=== PATIENT | female | born 1945 | race Caucasian/White ===

== ENCOUNTER → 2016-08-13 | Emergency (ER) | payer OTHER ==
[~2016-08-13] VITALS: Ht 162.6 cm; Wt 82.5 kg
[~2016-08-13] MED LIST: ACET500C5 PO; AZIT250T4 PO; BACTDS PO; BENZ100C70 PO; CEPH-443 PO; GUAI473L22 PO
[2016-08-13 13:38] VITALS: Ht 162.6 cm; Wt 82.5 kg
[2016-08-13 14:04] VITALS: BP 164/74; PULSE 60; RESP 20
== END | disposition left against medical advice (07) ==
LOC: E/R 13:34
DX: Z53.21 Procedure and treatment not carried out due to patient leaving prior to being seen by health care provider (principal)

== ENCOUNTER 2018-06-01 18:19 | Inpatient (IN) | END 2018-06-04 21:09 | DRG 872 ==

== ENCOUNTER 2019-01-10 12:05 | Observation (INO) | payer OTHER ==
[~2019-01-10] VITALS: Ht 157.5 cm; Wt 82.5 kg
[~2019-01-10 12:05] MED LIST changes: -ACET500C5 PO; +AMLO-147 PO; +ATEN50TA PO; -AZIT250T4 PO; -BACTDS PO; -BENZ100C70 PO; -CEPH-443 PO; +GABA300C16 PO; -GUAI473L22 PO; +LOSA100T3 PO; +METF-849 PO; +SITA50TA2 PO
[2019-01-10] MEDS ORDERED: morphine 4 MG/ML VIAL IV STA (12:34)
[2019-01-10] MEDS ORDERED: ONDANSETRON 4 MG INJ IV STA (12:34)
[2019-01-10] MEDS ORDERED: LABETALOL HCL 20MG INJ IV ONE (13:00)
--- NOTE | 2019-01-10 13:25 | ERD ---
ER Documentation Chief Complaint Chief Complaint headache with lt facial numbness x 4 days , rt foot pain since last night HPI This is a 73-year-old female with a past medical history of aqg-afwnwal-omyrmegfx diabetes mellitus hyperlipidemia and hypertension. The patient presented to the emergency department complaining with a mild bandlike headache for the past 4 days. She indicates that she is also been experiencing and numbness and tingling on the left side of her face. She indicates the numbness and tingling on the left side of her face has been intermittent for over 4 days. She denies any weakness of her upper or lower extremities. The patient is also complaining of right foot pain. She denies any trauma to the right foot. She states the pain is a pins and needlelike sensation and is most prominent over the right third fourth and fifth toe. She had no fevers or shaking no chills. She denies any frequency urgency or dysuria. She lives with her son who helps her to attend her activities of daily living. Her son indicates that he is concerned that the patient could have taken too much of her medications. He indicates that the pills look like and given that his mother cannot read or write he believes she might have taken too much of her swid-akl-vcwwcsi analgesic medication and forgot to take her antihypertensive medications. She denies any changes in vision. She states this is not the worst headache of her life and the patient's main concern is her right foot pain. The patient had been seen and evaluated at [facility] admitted for possible CVA in May 2018 where she also had been complaining of the same right foot pain. She denies any calf tenderness. No shortness of breath at rest or exertion. ROS All systems reviewed and are negative except as per history of present illness. Medications Home Meds Reported Medications Amlodipine Besylate* (Amlodipine Besylate*) 10 Mg Tablet, 10 MG PO DAILY, #30 TAB 06/02/18 Sitagliptin* (Januvia*) 50 Mg Tablet, 50 MG PO DAILY, #30 TAB 06/02/18 Metformin* (Glucophage*) 500 Mg Tab, 500 MG PO WITH LUNCH DINNER, #60 TAB 06/02/18 Losartan Potassium* (Cozaar*) 100 Mg Tablet, 100 MG PO DAILY, #30 TAB 06/02/18 Atenolol* (Atenolol*) 50 Mg Tablet, 50 MG PO DAILY, #30 TAB 06/02/18 Gabapentin* (Gabapentin*) 300 Mg Capsule, 300 MG PO BID, #60 CAP 06/02/18 Allergies Allergies: Coded Allergies: No Known Drug Allergy (Verified Allergy, Mild, 01/10/19) PMhx/Soc History of Surgery: No Anesthesia Reaction: No Hx Neurological Disorder: Yes (stroke 3 months ago ) Hx Respiratory Disorders: Yes (Bronchitis, Asthma ) Hx Cardiac Disorders: Yes (HTN) Hx Psychiatric Problems: Yes (Dementia) Hx Miscellaneous Medical Probl: Yes (HTN , RT FOOT PAIN LT FLANK PAIN , H.OF CVA , DM , HTN.) Hx Alcohol Use: No Hx Substance Use: No Hx Tobacco Use: No Smoking Status: Never smoker Physical Exam Vitals Vital Signs Date Temp Pulse Resp B/P (MAP) Pulse Ox O2 O2 Flow FiO2 Time Delivery Rate 01/10/19 76 18 155/77 100 Room Air 14:09 (103) 01/10/19 Nasal 2 12:50 Cannula 01/10/19 99.0 61 18 237/97 98 12:09 (143) Physical Exam Constitutional:Well-developed. Well-nourished. HEENT:Normocephalic. Atraumatic.Pupils were equal round reactive to light. Moist mucous membranes.No tonsillar exudates. Neck: No nuchal rigidity. No lymphadenopathy. No posterior cervical spine tenderness or step-offs. Respiratory: Not using accessory muscles of respiration.Lungs were clear to auscultation bilaterally. No rhonchi. No rales. No wheezing. Cardiovascular: Regular rate regular rhythm.No murmurs. No rubs were appreciated .S1, S2 normal. Distal pulses are palpable 2+ bilaterally. GI: Abdomen was soft. Nontender. Non Distended. No pulsatile abdominal masses or bruits. No rebound. No guarding. Bowel sounds were present and normal. Muscle skeletal: Full range of motion of both the upper and lower extremities bilaterally.Normal muscle tone.No assymetrical calf tenderness or swelling. Tenderness over the right third fourth and fifth distal metatarsals and proximal phalanx ease with no obvious bony deformities, no erythremia fluctuance or induration. Right lower extremity was not pale to the touch. Skin: No petechia, no purpura. No lesions on the palms or the soles of the feet. No maculopapular rash. NEURO: Patient was alert, awake, orientated x3. Very mild left facial droop. Gait observed and normal with no ataxia.Speech had regular rate and rhythm. Sensation intact to sharp and dull of the bilateral trigeminal nerve distribution of the face. Result Diagram: 01/10/19 1314 01/10/19 1247 Results 24 hrs Laboratory Tests Test 01/10/19 12:47 01/10/19 13:14 01/10/19 13:16 01/10/19 13:17 Prothrombin Time 11.8 Sec Prothrombin Time 0.9 Ratio INR International 0.86 Normalized Ratio Activated 21.1 Sec Partial Thrombopl ast Time Sodium Level 139 mmol/L Potassium Level 4.1 mmol/L Chloride Level 105 mmol/L Carbon Dioxide 23 mmol/L Level Anion Gap 11 Blood Urea 17 mg/dl Nitrogen Creatinine 0.45 mg/dl Est Glomerular mL/min Filtrat Rate mL/min Glucose Level 97 mg/dl Calcium Level 9.8 mg/dl Total Bilirubin 0.5 mg/dl Direct Bilirubin 0.00 mg/dl Indirect 0.5 mg/dl Bilirubin Aspartate Amino 26 IU/L Transf (AST/SGOT) Alanine 19 IU/L Aminotransferase (ALT/SGPT) Alkaline 72 IU/L Phosphatase Creatine Kinase 105 IU/L Creatine Kinase 1.6 Index Creatinine Kinase 1.65 ng/ml MB (Mass) Troponin I < 0.012 ng/ml B-Type 588 PG/ML Natriuretic Peptide Total Protein 7.9 g/dl Albumin 4.5 g/dl Globulin 3.40 g/dl Albumin/Globulin 1.32 Ratio Lipase 65 U/L Salicylates Level < 1.0 mg/dl Acetaminophen < 10.0 ug/ml Level Ethyl Alcohol < 10.0 mg/dl Level White Blood Count 9.7 10^3/ul Red Blood Count 4.47 10^6/ul Hemoglobin 12.6 g/dl Hematocrit 38.7 % Mean Corpuscular 86.6 fl Volume Mean Corpuscular 28.2 pg Hemoglobin Mean Corpuscular 32.6 g/dl Hemoglobin Concen t Red Cell 13.5 % Distribution Width Platelet Count 188 10^3/UL Mean Platelet 13.5 fl Volume Immature 0.300 % Granulocytes % Neutrophils % 65.9 % Lymphocytes % 25.0 % Monocytes % 6.7 % Eosinophils % 1.7 % Basophils % 0.4 % Nucleated Red 0.0 /100WBC Blood Cells % Immature 0.030 10^3/ul Granulocytes # Neutrophils # 6.4 10^3/ul Lymphocytes # 2.4 10^3/ul Monocytes # 0.7 10^3/ul Eosinophils # 0.2 10^3/ul Basophils # 0.0 10^3/ul Nucleated Red 0.0 10^3/ul Blood Cells # Urine Color STRAW Urine Clarity CLEAR Urine pH 5.0 Urine Specific 1.005 [place] Urine Ketones NEGATIVE mg/dL Urine Nitrite NEGATIVE mg/dL Urine Bilirubin NEGATIVE mg/dL Urine NEGATIVE mg/dL Urobilinogen Urine Leukocyte NEGATIVE [place]/ul Esterase Urine Hemoglobin NEGATIVE mg/dL Urine Glucose NEGATIVE mg/dL Urine Total NEGATIVE mg/dl Protein Uric Acid 4.9 mg/dl Current Medications Medications Dose Sig/Genny Start Time Status Last (Trade) Ordered Route PRN Stop Time Admin Dose Reason Admin Morphine 4 mg ONCE STAT 01/10/19 DC 01/10/19 Sulfate IV 12:34 01/10/19 13:36 (morphine) 12:37 Ondansetron 4 mg ONCE STAT 01/10/19 DC 01/10/19 HCl (Zofran IV 12:34 01/10/19 13:36 Inj) 12:37 Labetalol 10 mg ONCE ONCE 01/10/19 DC HCl IV 13:00 01/10/19 (Labetalol) 13:13 Nicardipine 30 mg ONCE ONCE 01/10/19 DC 01/10/19 HCl PO 13:30 01/10/19 13:21 (Cardene) 13:31 Gabapentin 300 mg ONCE ONCE 01/10/19 DC 01/10/19 (Neurontin) PO 14:00 01/10/19 14:56 14:01 Ondansetron 4 mg ER BRIDGE 01/10/19 HCl (Zofran PRN IV 15:00 01/11/19 Inj) NAUSEA/VOMITI 14:59 NG 650 mg ER BRIDGE 01/10/19 Acetaminophen PRN PO 15:00 01/11/19 (Tylenol .MILD PAIN 14:59 Tab) 1-3 OR TEMP Procedures/MDM This is a 73-year-old female that presented to the emergency department with a mild headache and right foot pain. The patient was immediately placed in a color television console monitor continuous pulse oximetry by nursing staff. This patient also presented to the emergency department with severely elevated blood pressure. My differential diagnosis included but was not limited to conditions that could end-organ damage such as acute coronary syndrome, acute pulmonary edema, aortic dissection, subarachnoid hemorrhage, intracerebral hemorrhage, cerebral infarction, withdrawal syndromes from beta blockers, or states of catecholamine excess such as pheochromocytoma or drug intoxication. Ancillary lab work was obtained. There was no elevation in the BUN and creatinine to suggest acute renal failure. Electrolytes were normal. Cardiac enzyme was normal and the 12 lead EKG showed no acute ischemic changes or left ventricular hypertrophy. 12 Lead EKG tracing ordered and reviewed by myself showed: Normal sinus rhythm of 70 bpm and no arrhythmia. UT interval normal. QRS duration normal. No ST segment elevation. Premature supraventricular complexes No ST segment depression. No changes consistent with acute ischemia. The patient did present with a mild left-sided facial droop. Her physical exam findings were not suggestive of Germain's palsy despite the unilateral facial droop as the patient did have complete left eyelid closure and no loss of forehead muscle tone. Therefore I did feel the patient required further evaluation with an MRI of the brain. She will be admitted to the renal physician for observation Dr. Atwood. The patient blood pressure did improve with oral Cardene. CT scan the patient's head showed no intracerebral hemorrhage mass- effect or midline shift. Chest radiograph showed no pneumonia or infiltrates. Regarding the patient's foot pain I did obtain radiographic imaging there was no evidence of a fracture. The patient had no overlying skin changes to suggest an infectious process such as cellulitis or necrotizing fasciitis. I reviewed the previous admission and the patient appeared to have similar symptoms with pain in the right foot. My clinical suspicion was low for gout and I did feel this was more likely complication of diabetic neuropathy. The patient was given a dose of gabapentin in the emergency department. Departure Diagnosis: Primary Impression: Hypertensive urgency Additional Impressions: Facial droop Diabetic neuropathy Diabetes mellitus type: other specified (including HUGO) Diabetes mellitus complication detail: with other neurological complication Qualified Codes: E13.49 - Other specified diabetes mellitus with other diabetic neurological complication Condition: Serious NEGRITA WOMACK MD Jan 10, 2019 13:25
[2019-01-10] MEDS ORDERED: NICARDipine HCL 30 MG CAPSULE PO ONE (13:30)
[2019-01-10] MEDS ORDERED: GABAPENTIN 300 MG CAP PO ONE (14:00)
[2019-01-10] MEDS ORDERED: ACETAMINOPHEN 325 MG TAB PO PRN (15:00)
[2019-01-10] MEDS ORDERED: ONDANSETRON 4 MG INJ IV PRN (15:00)
[2019-01-10] MEDS ORDERED: NON-FORMULARY/PATIENT OWN MED (Sitagliptin* (Januvia*) 50 MG) PO SCH (17:30)
[2019-01-10] MEDS: INSULIN ASPART [NOVOLOG] 3 ML PEN SC SCH ×2 (17:55→20:17)
[2019-01-10 18:00] VITALS: Ht 157.5 cm; Wt 82.5 kg
[2019-01-10] MEDS: ATENOLOL 50 MG TAB PO SCH (18:00)
[2019-01-10 18:13] VITALS: BP 190/81; PULSE 54; RESP 19
[2019-01-10] MEDS: LOSARTAN 50 MG TAB PO SCH (18:19)
[2019-01-10] MEDS: ASPIRIN (EC) 81 MG TAB PO SCH (18:20)
[2019-01-10] MEDS: LINAGLIPTIN 5 MG TABLET PO SCH (18:20)
[2019-01-10] MEDS: AMLODIPINE 10 MG TAB PO SCH (18:20)
[2019-01-10] MEDS: metFORMIN 500 MG TAB PO SCH (18:20)
[2019-01-10 18:21] VITALS: PULSE 48
[2019-01-10] MEDS ORDERED: GLUCOSE GEL 15 GRAM TUBE PO PRN ×2 (18:30)
[2019-01-10] MEDS ORDERED: GLUCOSE GEL 15 GRAM TUBE BUCCAL PRN (18:30)
[2019-01-10] MEDS ORDERED: GLUCAGON 1 MG INJ IM PRN (18:30)
[2019-01-10] MEDS ORDERED: DEXTROSE 50% 50 ML SYRINGE IV PRN ×2 (18:30)
[2019-01-10 19:28] VITALS: BP 146/67; PULSE 50; RESP 18
[2019-01-10] MEDS: morphine 2 MG INJ IV PRN ×2 (19:55→22:53)
[2019-01-10 20:11] VITALS: PULSE 49
[2019-01-10] MEDS: GABAPENTIN 300 MG CAP PO SCH (22:45)
[2019-01-10 23:29] VITALS: BP 159/67; PULSE 55; RESP 18
[2019-01-11] VITALS (7 sets, daily range): BP systolic 128–168; BP diastolic 59–69; PULSE 51–88; RESP 18–19
[2019-01-11] MEDS: ASPIRIN (EC) 81 MG TAB PO SCH (08:28)
[2019-01-11] MEDS: GABAPENTIN 300 MG CAP PO SCH (08:28)
[2019-01-11] MEDS: LINAGLIPTIN 5 MG TABLET PO SCH (08:28)
[2019-01-11] MEDS: AMLODIPINE 10 MG TAB PO SCH (08:29)
[2019-01-11] MEDS: ATENOLOL 50 MG TAB PO SCH (08:29)
[2019-01-11] MEDS: LOSARTAN 50 MG TAB PO SCH (08:29)
[2019-01-11] MEDS ORDERED: HYDR25TA6 PO (08:40)
[2019-01-11] MEDS: INSULIN ASPART [NOVOLOG] 3 ML PEN SC SCH ×2 (09:04→11:50)
--- NOTE | 2019-01-11 10:44 | HP ---
DATE OF ADMISSION: 01/10/2019 CHIEF COMPLAINT: Right foot pain. HISTORY OF PRESENT ILLNESS: A 73-year-old female with history of hypertension, type 2 diabetes hunteri kasia, hyperlipidemia, presented to emergency room with complaint of right foot pain as well as a heada bonny for 4 days. The patient also reported some tingling and numbness on the left side of her face. REVIEW OF SYSTEMS: She denies focal weakness or numbness in her extremities. No speech deficits. N o visual deficits. Initial evaluation revealed a mild left facial droop. Blood pressure was quite elevated at the time of presentation with systolic blood pressure of 277. Following admission to the hospital, patient remained neurologically intact. Her headache improved o nce blood pressure was controlled. PAST MEDICAL HISTORY: 1. Hypertension. 2. Type 2 diabetes mellitus. 3. Hyperlipidemia. 4. Diabetic neuropathy. 5. History of old CVA. MEDICATIONS PRIOR TO ADMISSION: 1. Amlodipine 10 mg daily. 2. Januvia 50 mg daily. 3. Metformin 500 mg b.i.d. 4. Losartan 100 mg daily. 5. Atenolol 50 mg daily. 6. Gabapentin 300 mg b.i.d. SOCIAL HISTORY: The patient lives at home. She denies tobacco or alcohol use. PHYSICAL EXAMINATION: GENERAL: Well-developed, well-nourished female who is in no apparent distress. VITAL SIGNS: Stable. She is afebrile. HEENT: Extraocular muscles intact. Pupils equal and reactive to light bilaterally. Sclerae are ani cteric. Oropharynx is clear and moist. Left facial droop is resolved. NECK: Supple. LUNGS: Clear to auscultation bilaterally. CARDIAC: Regular rate and rhythm. No murmurs, rubs or gallops. ABDOMEN: Soft, nontender, nondistended, normoactive bowel sounds. EXTREMITIES: No clubbing, cyanosis, or edema. NEUROLOGICAL: Cranial nerves II through XII are intact. Motor strength is intact in all extremities . The patient has some decreased sensation in bilateral distal lower extremities. Coordination is i ntact. LABORATORY DATA: CBC is within normal limits. Basic metabolic panel is also within normal limits. ASSESSMENT: 1. A 73-year-old female with poorly controlled hypertension. 2. Left facial droop and numbness. Rule out transient ischemic attack. 3. Type 2 diabetes mellitus. 4. Hyperlipidemia. 5. Diabetic neuropathy. PLAN: Place in [facility] observation. Resume home medications. Proceed with MRI of brain and carotid du plex. Discharge planning if MRI is normal. Dictated By: MONICA TOWNSEND/ADOLFO Conf#: [id number] DID#: [id number]
[2019-01-11] MEDS: metFORMIN 500 MG TAB PO SCH (12:29)
--- NOTE | 2019-01-12 16:27 | DS ---
DATE OF ADMISSION: 01/10/2019 DATE OF DISCHARGE: 01/11/2019 DISCHARGE DIAGNOSES: 1. A 73-year-old female with poorly controlled hypertension. 2. Left facial droop, resolved. 3. Type 2 diabetes mellitus. 4. Hyperlipidemia. 5. Diabetic neuropathy. PROCEDURES DURING HOSPITALIZATION: CAT scan of brain, MRI of brain and carotid Doppler. HISTORY OF PRESENT ILLNESS: A 73-year-old female with history of hypertension, type 2 diabetes melli kasia, and hyperlipidemia, presented to emergency room with complaint of right foot pain. The patient also reported headaches for 4 days. An initial blood pressure was as high as 237/97. The patient wa s initially noted to have left facial droop. Following admission to the hospital, antihypertensives were resumed. The patient had no focal weakne ss. Her left facial droop resolved as well. MRI of brain was unremarkable. Carotid Doppler did not show any evidence of hemodynamically the significant stenosis. Patient was discharged home in a sta ble condition. I added hydrochlorothiazide for better control of her blood pressure. MEDICATIONS ON DISCHARGE: 1. Norvasc 10 mg p.o. daily. 2. Atenolol 50 mg p.o. daily. 3. Losartan 100 mg p.o. daily. 4. Hydrochlorothiazide 25 mg p.o. daily. 5. Metformin 500 mg b.i.d. 6. Januvia 50 mg daily. 7. Gabapentin 300 mg b.i.d. DISCHARGE INSTRUCTIONS: The patient was asked to follow up with her PCP in 1 week. Dictated By: MONICA TOWNSEND/ADOLFO Conf#: [id number] DID#: [id number]
== END 2019-01-11 15:01 | disposition home or self-care (01) ==
LOC: E/R 12:05 → TEL 14:45
PROVIDERS: ADMIT Internal Medicine; ATTEND Internal Medicine
DX: I16.0 Hypertensive urgency (principal); I10 Essential (primary) hypertension; E78.5 Hyperlipidemia, unspecified; E11.40 Type 2 diabetes mellitus with diabetic neuropathy, unspecified; F03.90 Unspecified dementia, unspecified severity, without behavioral disturbance, psychotic disturbance, mood disturbance, and anxiety; Z86.73 Personal history of transient ischemic attack (TIA), and cerebral infarction without residual deficits
CPT/HCPCS: 36415; 70450; 70551; 71045; 73630; 80053; 80307; 81003; 82550; 82553; 82962; 83690; 83880; 84484; 84560; 85025; 85610; 85730; 93005; 93880; 96374; 96375; 99285; G0378; J1815; J2270; J2405; 99217